=== PATIENT | female | born 1975 | race Caucasian/White ===

== ENCOUNTER 2017-04-22 19:53 | Emergency (ER) | payer MEDICAID ==
[~2017-04-22] VITALS: Ht 162.6 cm; Wt 79.5 kg
[~2017-04-22 19:53] MED LIST: CITA-311 PO; ESTR0.6261 PO; OMEP40CA37 PO
[2017-04-22] MEDS ORDERED: HYDROcodone/acetaminophen 10/325mg tab PO ONE (20:00)
[2017-04-22] MEDS ORDERED: ondansetron 4mg rapidly disintigrating tab PO ONE (20:00)
[2017-04-22] MEDS ORDERED: ONDA4TAB9 PO (20:14)
[2017-04-22] MEDS ORDERED: HYDR-3965 PO (20:14)
[2017-04-22 21:16] VITALS: BP 145/65
[2017-04-25] MEDS ORDERED: PROC25SU30 PO (10:31)
[2017-04-25] MEDS ORDERED: NAPR-56 PO (10:31)
[2017-04-25] MEDS ORDERED: HYDR-565 PO (10:31)
== END 2017-04-22 21:23 | disposition home or self-care (01) ==
LOC: ER 19:53
DX: S06.0X0A Concussion without loss of consciousness, initial encounter (principal); S00.03XA Contusion of scalp, initial encounter; F12.10 Cannabis abuse, uncomplicated; Z90.49 Acquired absence of other specified parts of digestive tract; Z90.710 Acquired absence of both cervix and uterus; Z88.5 Allergy status to narcotic agent; Z79.899 Other long term (current) drug therapy; W22.8XXA Striking against or struck by other objects, initial encounter; Y93.89 Activity, other specified; Y92.320 Baseball field as the place of occurrence of the external cause; Y99.9 Unspecified external cause status
CPT/HCPCS: 70450; 99284

== ENCOUNTER → 2017-04-25 | Emergency (ER) | payer MEDICAID ==
[~2017-04-25] VITALS: Ht 162.6 cm; Wt 83.1 kg
[~2017-04-25] MED LIST changes: +HYDR-3965 PO; +HYDR-565 PO; +HYDROcodone/acetaminophen 5mg/325mg tablet PO ONE; +NAPR-56 PO; +ONDA4TAB9 PO; +PROC25SU30 PO; +naproxen 500mg tablet PO ONE; +proCHLORperazine 10mg tablet PO ONE
[2017-04-25 10:04] VITALS: BP 127/81
== END | disposition home or self-care (01) ==
LOC: ER 09:10
DX: F07.81 Postconcussional syndrome (principal); R55 Syncope and collapse; F12.10 Cannabis abuse, uncomplicated; Z88.6 Allergy status to analgesic agent; Z79.899 Other long term (current) drug therapy; Z90.49 Acquired absence of other specified parts of digestive tract; Z90.710 Acquired absence of both cervix and uterus
CPT/HCPCS: 99284; Q0164

== ENCOUNTER 2018-08-17 16:50 | Emergency (ER) | payer MEDICAID ==
[~2018-08-17] VITALS: Ht 162.6 cm; Wt 81.8 kg
[~2018-08-17 16:50] MED LIST changes: -HYDR-3965 PO; -HYDR-565 PO; -HYDROcodone/acetaminophen 5mg/325mg tablet PO ONE; -NAPR-56 PO; -ONDA4TAB9 PO; -naproxen 500mg tablet PO ONE; -proCHLORperazine 10mg tablet PO ONE
[2018-08-17 17:01] VITALS: BP 155/135
--- NOTE | 2018-08-17 17:19 | NUR ---
PT UNRESPONSIVE FOR 30SECONDS. DROWSY NOW. DR. GREWAL AT BEDSIDE. C/O LEFT SIDE CHEST PAIN
[2018-08-17] MEDS ORDERED: normal saline 1000ML IV soln IVB ONE (17:25)
[2018-08-17 17:51] LABS: BASOPHILS # (AUTO) 0.1 X10'3 (0-0.2); BASOPHILS % (AUTO) 1.4 % (0-1); EOSINOPHILS % (AUTO) 0.4 % (0-6); HEMATOCRIT 39.2 % (35.0-45.0); HEMOGLOBIN 13.4 g/dl (12.0-16.0); LYMPHOCYTES # (AUTO) 2.7 X10'3 (1.1-4.8); LYMPHOCYTES % (AUTO) 26.7 % (21-51); MEAN CORPUSCULAR HEMOGLOBIN 30.6 PG (27.0-31.0); MEAN CORPUSCULAR HGB CONC 34.1 g/dL (33.0-36.5); MEAN CORPUSCULAR VOLUME 89.8 FL (78-98); MEAN PLATELET VOLUME 7.5 FL (7.4-10.4); MONOCYTES # (AUTO) 0.4 X10'3 (0-0.9); MONOCYTES % (AUTO) 3.9 % (2-12); NEUTROPHILS # (AUTO) 6.7 X10'3 (1.8-7.7); NEUTROPHILS % (AUTO) 67.6 % (42-75); PLATELET COUNT 400 X10'3 (140-440); RED BLOOD COUNT 4.37 X10'6 (4.20-5.60); RED CELL DISTRIBUTION WIDTH 12.9 % (11.5-14.5)
[2018-08-17 18:05] LABS: ALANINE AMINOTRANSFERASE 28 U/L (12-78); ALBUMIN 3.6 G/DL (3.4-5.0); ALKALINE PHOSPHATASE 60 IU/L (46-116); ANION GAP 10 (8-16); ASPARTATE AMINO TRANSFERASE 24 U/L (10-37); BILIRUBIN,TOTAL 0.2 MG/DL (0.1-1.0); BLOOD UREA NITROGEN 9 MG/DL (7-18); CALCIUM 8.7 MG/DL (8.5-10.1); CHLORIDE 103 MMOL/L (99-107); CREATININE 0.75 MG/DL (0.40-0.90); ETHANOL < 0.010 GM/DL (0.0-0.010); GLUCOSE 90 MG/DL (70-104); SODIUM 137 MMOL/L (135-145); TOTAL CARBON DIOXIDE 23.7 MMOL/L (24-32); TOTAL PROTEIN 7.2 G/DL (6.4-8.2); eGFR 85 ML/MIN
[2018-08-17 18:07] LABS: PARTIAL THROMBOPLASTIN TIME 29 SECONDS (22-32)
[2018-08-17 18:08] LABS: POTASSIUM 3.4 MMOL/L (3.5-5.1)
[2018-08-17 18:12] LABS: ACETAMINOPHEN < 2.0 UG/ML (10-30)
--- NOTE | 2018-08-17 18:12 | NUR ---
Flor saldaña in [facility] - 08/17/18 at 1814 by MAGDALENE K 2.7 JUANJO GREWAL M.D.
[2018-08-17 18:34] LABS: URINE AMPHETAMINE SCREEN NEGATIVE (Neg); URINE BARBITUATE SCREEN NEGATIVE (Neg); URINE BENZODIAZEPINES SCREEN NEGATIVE (Neg); URINE CANNABINOID SCREEN POSITIVE (Neg); URINE COCAINE SCREEN NEGATIVE (Neg); URINE METHADONE SCREEN NEGATIVE (Neg); URINE OPIATE SCREEN NEGATIVE (Neg); URINE PHENCYCLIDINE SCREEN NEGATIVE (Neg)
== END 2018-08-17 19:58 | disposition home or self-care (01) ==
LOC: ER 16:50
DX: R55 Syncope and collapse (principal); R51 Headache; R07.89 Other chest pain; R42 Dizziness and giddiness; R10.13 Epigastric pain; R19.7 Diarrhea, unspecified; R06.02 Shortness of breath; R11.2 Nausea with vomiting, unspecified; F12.90 Cannabis use, unspecified, uncomplicated; Z90.49 Acquired absence of other specified parts of digestive tract; Z90.710 Acquired absence of both cervix and uterus; Z88.5 Allergy status to narcotic agent; Z79.899 Other long term (current) drug therapy
CPT/HCPCS: 36415; 70450; 71045; 80053; 80305; 80320; 80329; 84484; 85025; 85610; 85730; 93005; 99284; J7030; 96360; 96361

== ENCOUNTER 2019-02-08 15:00 | Emergency (ER) | payer OTHER, MEDICAID ==
[~2019-02-08] VITALS: Ht 162.6 cm; Wt 78.2 kg
[~2019-02-08 15:00] MED LIST changes: +OMEP40CA13 PO; -OMEP40CA37 PO
[2019-02-08] MEDS ORDERED: acetaminophen 325mg tablet PO ONE (16:15)
[2019-02-08 16:34] VITALS: BP 131/95
== END 2019-02-08 16:34 | disposition home or self-care (01) ==
LOC: ER 15:01
DX: M54.2 Cervicalgia (principal); M54.5 Low back pain; R51 Headache; F12.90 Cannabis use, unspecified, uncomplicated; F10.99 Alcohol use, unspecified with unspecified alcohol-induced disorder; Z90.49 Acquired absence of other specified parts of digestive tract; Z90.710 Acquired absence of both cervix and uterus; Z88.5 Allergy status to narcotic agent; Z79.899 Other long term (current) drug therapy; V87.7XXA Person injured in collision between other specified motor vehicles (traffic), initial encounter; Y93.89 Activity, other specified; Y92.410 Unspecified street and highway as the place of occurrence of the external cause; Y99.8 Other external cause status; Y90.9 Presence of alcohol in blood, level not specified
CPT/HCPCS: 99282